=== PATIENT | male | born 1985 | race Caucasian/White ===

== ENCOUNTER 2017-08-11 18:31 | Inpatient (IN) | payer OTHER ==
[~2017-08-11] VITALS: Ht 172.7 cm; Wt 72.6 kg
[2017-08-11 17:20] VITALS: BP 136/84
[2017-08-11] MEDS ORDERED: ONDANSETRON 4 MG/2 ML VIAL IM PRN (19:30)
[2017-08-11] MEDS ORDERED: DICYCLOMINE HCL 20 MG TABLET PO PRN (19:30)
[2017-08-11] MEDS ORDERED: LORAZEPAM 1 MG TABLET PO PRN (19:30)
[2017-08-11] MEDS ORDERED: ONDANSETRON ODT 4 MG TAB.RAPDIS SL PRN (19:30)
[2017-08-11] MEDS ORDERED: MIRALAX 17 GM POWD.PACK PO PRN (19:30)
[2017-08-11] MEDS ORDERED: MAGNESIUM HYDROXIDE 30 ML LIQUID UDC PO PRN (19:30)
[2017-08-11] MEDS ORDERED: LORAZEPAM 2 MG/1 ML VIAL IM PRN (19:30)
[2017-08-11] MEDS ORDERED: LOPERAMIDE HCL 2 MG CAPSULE PO PRN ×2 (19:30)
[2017-08-11] MEDS ORDERED: CLONIDINE HCL 0.1 MG TABLET PO PRN (19:30)
[2017-08-11] MEDS ORDERED: BUPRENORPHINE HCL 2 MG TAB.SUBL SL PRN (19:30)
[2017-08-11] MEDS ORDERED: MAG HYDROX/AL HYDROX/SIMETH 30 ML LIQUID UDC PO PRN (19:30)
[2017-08-11 20:03] LABS: *AMPHETAMINE, URINE NEGATIVE (NEGATIVE); *BARBITURATE, URINE NEGATIVE (NEGATIVE); *CANNABINOID, URINE NEGATIVE (NEGATIVE); *COCCAINE, URINE POSITIVE (NEGATIVE); *OPIATE, URINE POSITIVE (NEGATIVE); *PHENCYCLIDINE SCREEN,URINE NEGATIVE (NEGATIVE)
[2017-08-11] MEDS: ACETAMINOPHEN 325 MG TABLET PO PRN (20:09)
[2017-08-11] MEDS: GABAPENTIN 300 MG CAPSULE PO SCH (20:11)
[2017-08-11] MEDS ORDERED: LORAZEPAM 1 MG TABLET PO SCH (21:00)
[2017-08-11] MEDS ORDERED: BUPRENORPHINE HCL 2 MG TAB.SUBL SL SCH (21:00)
[2017-08-11] MEDS: IBUPROFEN 600 MG TABLET PO PRN (21:32)
[2017-08-11 22:04] LABS: BASOPHILS # (AUTO) 0.1 K/uL (0.0-8.0); BASOPHILS % (AUTO) 0.7 % (0.0-2.0); EOSINOPHILS % (AUTO) 0.3 % (0.0-7.0); HEMATOCRIT 35.3 % (36.7-47.1); LYMPHOCYTES # (AUTO) 2.1 K/uL (20.0-40.0); LYMPHOCYTES % (AUTO) 22.6 % (20.5-51.5); MEAN CORPUSCULAR HEMOGLOBIN 26.5 uug (23.8-33.4); MEAN CORPUSCULAR HGB CONC 34 g/dL (32.5-36.3); MEAN CORPUSCULAR VOLUME 78.1 fL (73.0-96.2); MONOCYTES # (AUTO) 0.9 K/uL (2.0-10.0); MONOCYTES % (AUTO) 9.1 % (0.0-11.0); NEUTROPHILS # (AUTO) 6.4 K/uL (1.8-8.9); NEUTROPHILS % (AUTO) 67.3 % (38.5-71.5); PLATELET COUNT (AUTO) 186 K/uL (152-348); RED BLOOD CELL COUNT(AUTO) 4.52 MIL/uL (4.06-5.63); WHITE BLOOD COUNT (AUTO) 9.5 K/uL (3.6-10.2)
[2017-08-11 22:10] LABS: ETHANOL < 3 MG/DL (0-0)
[2017-08-11 22:16] LABS: ALANINE AMINOTRANSFERASE 114 U/L (16-63); ALKALINE PHOSPHATASE 61 U/L (50-136); ASPARTATE AMINOTRANSFERASE 88 U/L (15-37); BILIRUBIN,TOTAL 0.4 mg/dL (0.2-1.0); CARBON DIOXIDE 27 mmol/L (21-32); CHLORIDE 100 mmol/L (98-107); CREATININE 1.1 mg/dL (0.6-1.3); GLUCOSE 123 mg/dL (74-106); MAGNESIUM 1.7 mg/dL (1.8-2.4); POTASSIUM 3.1 mmol/L (3.5-5.1); TOTAL PROTEIN, SERUM 7.4 g/dL (6.4-8.2); UREA NITROGEN, BLOOD 20 mg/dL (7-18)
[2017-08-11] MEDS ORDERED: diphenhydrAMINE 50 MG CAPSULE PO PRN (22:45)
[2017-08-11] MEDS ORDERED: POTASSIUM CHLORIDE 20 MEQ TAB.PRT.SR PO ONE (23:15)
[2017-08-11] MEDS ORDERED: MAGNESIUM OXIDE 400 MG TABLET PO ONE (23:15)
[2017-08-11] MEDS ORDERED: BUPRENORPHINE HCL 2 MG TAB.SUBL SL ONE (23:45)
[2017-08-11] MEDS ORDERED: LORAZEPAM 1 MG TABLET PO ONE (23:45)
[2017-08-11] MEDS ORDERED: KETOROLAC TROMETHAMINE 30 MG INJ IM ONE (23:45)
[2017-08-12] VITALS: BP 132/80
[2017-08-12 04:00] VITALS: BP 128/84
[2017-08-12] MEDS ORDERED: FOLI1TAB16 PO (04:52)
[2017-08-12] MEDS ORDERED: GABA300C PO (04:52)
[2017-08-12] MEDS ORDERED: NAPR500T6 PO (04:52)
[2017-08-12] MEDS ORDERED: HYDR-3028 PO (04:52)
[2017-08-12] MEDS ORDERED: OMEG1CAP40 PO (04:52)
[2017-08-12] MEDS ORDERED: VITA1TAB20 PO (04:52)
[2017-08-12] MEDS ORDERED: THIA100T8 PO (04:52)
[2017-08-12] MEDS ORDERED: ACET-2154 PO (04:52)
[2017-08-12] MEDS ORDERED: MULT1TAB69 PO ×2 (04:52)
[2017-08-12] MEDS ORDERED: MELATONIN (04:52)
[2017-08-12] MEDS ORDERED: PEPTO-BISMOL (04:52)
[2017-08-12] MEDS ORDERED: QUET300T2 PO (04:52)
[2017-08-12] MEDS ORDERED: TUMS (04:52)
[2017-08-12] MEDS ORDERED: IBUP-1957 PO (04:52)
[2017-08-12] MEDS ORDERED: GABA-532 PO (04:52)
[2017-08-12] MEDS ORDERED: CHLO1TAB PO (04:52)
[2017-08-12] MEDS ORDERED: GUAI100S34 PO (04:52)
[2017-08-12] MEDS: LORAZEPAM 1 MG TABLET PO PRN ×2 (05:14→16:00)
[2017-08-12] MEDS: IBUPROFEN 600 MG TABLET PO PRN (05:23)
[2017-08-12 08:56] VITALS: BP 132/63
[2017-08-12] MEDS ORDERED: INFLUENZA VACCINE 2017-2018 0.5 ML DISP.SYRIN IM ONE (09:00)
[2017-08-12] MEDS ORDERED: PNEUMOCOCCAL 23-VAL P-SAC VAC 0.5 ML VIAL IM ONE (09:00)
[2017-08-12] MEDS ORDERED: TUBERCULIN,PURIF.PROT.DERIV. 5 TU/0.1 ML TEST ID ONE (09:00)
[2017-08-12] MEDS: LORAZEPAM 1 MG TABLET PO SCH ×4 (09:08→21:45)
[2017-08-12] MEDS: BUPRENORPHINE HCL 2 MG TAB.SUBL SL SCH ×3 (09:08→21:47)
[2017-08-12] MEDS: GABAPENTIN 300 MG CAPSULE PO SCH ×4 (09:08→21:45)
[2017-08-12] MEDS ORDERED: PRAZOSIN HCL 1 MG CAPSULE PO PRN (11:30)
[2017-08-12] MEDS ORDERED: KETOROLAC TROMETHAMINE 30 MG INJ IM PRN (13:00)
[2017-08-12 16:00] VITALS: BP 147/79
[2017-08-12 20:00] VITALS: BP 142/83
[2017-08-12] MEDS ORDERED: QUETIAPINE FUMARATE 200 MG TABLET PO SCH (21:00)
[2017-08-12] MEDS: ACETAMINOPHEN 325 MG TABLET PO PRN (21:44)
[2017-08-12] MEDS ORDERED: LEVOFLOXACIN 750 MG TABLET PO SCH (22:15)
[2017-08-12 22:34] LABS: BASOPHILS # (AUTO) 0.1 K/uL (0.0-8.0); BASOPHILS % (AUTO) 0.5 % (0.0-2.0); EOSINOPHILS % (AUTO) 0.1 % (0.0-7.0); HEMATOCRIT 38.5 % (36.7-47.1); HEMOGLOBIN 12.8 g/dL (12.5-16.3); LYMPHOCYTES # (AUTO) 2.6 K/uL (20.0-40.0); LYMPHOCYTES % (AUTO) 18.3 % (20.5-51.5); MEAN CORPUSCULAR HEMOGLOBIN 26.1 uug (23.8-33.4); MEAN CORPUSCULAR HGB CONC 33 g/dL (32.5-36.3); MEAN CORPUSCULAR VOLUME 78.4 fL (73.0-96.2); MONOCYTES # (AUTO) 1.3 K/uL (2.0-10.0); MONOCYTES % (AUTO) 9.2 % (0.0-11.0); NEUTROPHILS # (AUTO) 10.2 K/uL (1.8-8.9); NEUTROPHILS % (AUTO) 71.9 % (38.5-71.5); PLATELET COUNT (AUTO) 185 K/uL (152-348); RED BLOOD CELL COUNT(AUTO) 4.91 MIL/uL (4.06-5.63); WHITE BLOOD COUNT (AUTO) 14.2 K/uL (3.6-10.2)
[2017-08-12 22:40] LABS: BILIRUBIN,DIRECT 0.1 mg/dL (0.0-0.2); BILIRUBIN,TOTAL 0.4 mg/dL (0.2-1.0); CREATININE 1.1 mg/dL (0.6-1.3); MAGNESIUM 1.6 mg/dL (1.8-2.4); POTASSIUM 4.2 mmol/L (3.5-5.1); TOTAL PROTEIN, SERUM 8.1 g/dL (6.4-8.2)
[2017-08-12] MEDS ORDERED: MAGNESIUM OXIDE 400 MG TABLET PO ONE (23:00)
[2017-08-12] MEDS ORDERED: VANCOMYCIN IV 1 G in PREMIXED 0 EACH IV SCH (23:00)
[2017-08-12] MEDS: OSELTAMIVIR PHOSPHATE 75 MG CAPSULE PO SCH (23:34)
[2017-08-12] MEDS: IV NS 1000 ML 1,000 ML IV PRN (23:40)
[2017-08-12] MEDS ORDERED: PIPERACILLIN/TAZOBACTAM/D5W 50 ML IV ONE (23:45)
[2017-08-12] MEDS ORDERED: VANCOMYCIN IV 200 ML ONE (23:48)
[2017-08-13] MEDS: PIPERACILLIN/TAZOBACTAM/D5W 3.375 G in PREMIXED 1 EACH IV SCH ×3 (00:07→13:24)
[2017-08-13 04:00] VITALS: BP 121/70
[2017-08-13] MEDS ORDERED: PIPERACILLIN/TAZOBACTAM/D5W 50 ML IV ONE (05:42)
[2017-08-13 06:46] LABS: BASOPHILS # (AUTO) 0.1 K/uL (0.0-8.0); BASOPHILS % (AUTO) 0.7 % (0.0-2.0); EOSINOPHILS % (AUTO) 0.2 % (0.0-7.0); HEMATOCRIT 34.6 % (36.7-47.1); HEMOGLOBIN 11.5 g/dL (12.5-16.3); LYMPHOCYTES # (AUTO) 2.9 K/uL (20.0-40.0); LYMPHOCYTES % (AUTO) 24.4 % (20.5-51.5); MEAN CORPUSCULAR HEMOGLOBIN 26.2 uug (23.8-33.4); MEAN CORPUSCULAR HGB CONC 33 g/dL (32.5-36.3); MEAN CORPUSCULAR VOLUME 78.7 fL (73.0-96.2); MONOCYTES # (AUTO) 1.4 K/uL (2.0-10.0); MONOCYTES % (AUTO) 11.8 % (0.0-11.0); NEUTROPHILS # (AUTO) 7.5 K/uL (1.8-8.9); NEUTROPHILS % (AUTO) 62.9 % (38.5-71.5); PLATELET COUNT (AUTO) 167 K/uL (152-348); RED BLOOD CELL COUNT(AUTO) 4.39 MIL/uL (4.06-5.63)
[2017-08-13] MEDS: ACETAMINOPHEN 325 MG TABLET PO PRN (06:51)
[2017-08-13 07:20] LABS: BILIRUBIN,DIRECT 0.1 mg/dL (0.0-0.2); BILIRUBIN,TOTAL 0.4 mg/dL (0.2-1.0); CREATININE 1.3 mg/dL (0.6-1.3); MAGNESIUM 1.5 mg/dL (1.8-2.4); PHOSPHOROUS 3.2 mg/dL (2.5-4.9); POTASSIUM 3.6 mmol/L (3.5-5.1)
[2017-08-13 08:13] VITALS: BP 114/63
[2017-08-13] MEDS ORDERED: VANCOMYCIN IV 1,250 MG in IV DEXTROSE 5% 500 ML IV SCH (09:00)
[2017-08-13] MEDS ORDERED: LORAZEPAM 1 MG TABLET PO SCH ×2 (09:00)
[2017-08-13] MEDS ORDERED: HYDROXYZINE PAMOATE 25 MG CAPSULE PO PRN (09:00)
[2017-08-13] MEDS ORDERED: BUPRENORPHINE HCL 2 MG TAB.SUBL SL SCH ×3 (09:00→15:00)
[2017-08-13 09:08] LABS: HEPATITIS B SURFACE AG Negative (Negative)
[2017-08-13] MEDS ORDERED: MAGNESIUM OXIDE 400 MG TABLET PO ONE (09:45)
[2017-08-13] MEDS: IV NS 1000 ML 1,000 ML IV PRN ×2 (09:47→14:07)
[2017-08-13 10:00] VITALS: BP 120/64
[2017-08-13] MEDS: GABAPENTIN 300 MG CAPSULE PO SCH ×2 (10:00→14:55)
[2017-08-13] MEDS: OSELTAMIVIR PHOSPHATE 75 MG CAPSULE PO SCH (10:00)
[2017-08-13 12:17] VITALS: BP 113/61
[2017-08-13] MEDS ORDERED: VANCOMYCIN IV 1 G in PREMIXED 0 EACH IV SCH (21:00)
[2017-08-13] MEDS ORDERED: LACTOBACILLUS RHAMNOSUS GG 1 EACH CAPSULE PO SCH (21:00)
[2017-08-14] MEDS ORDERED: LORAZEPAM 1 MG TABLET PO SCH ×2 (09:00)
[2017-08-14] MEDS ORDERED: BUPRENORPHINE HCL 2 MG TAB.SUBL SL SCH ×2 (09:00)
[2017-08-15] MEDS ORDERED: BUPRENORPHINE HCL 2 MG TAB.SUBL SL SCH ×2 (09:00)
[2017-08-15] MEDS ORDERED: LORAZEPAM 1 MG TABLET PO SCH ×2 (09:00)
== END 2017-08-13 16:28 | disposition left against medical advice (07) | DRG 894 ==
LOC: SRC 19:00
PROVIDERS: ADMIT Internal Medicine; ATTEND Internal Medicine
PROC: HZ2ZZZZ Detoxification Services for Substance Abuse Treatment (ICD-10-PCS; principal; 2017-08-11)
DX: F13.230 Sedative, hypnotic or anxiolytic dependence with withdrawal, uncomplicated (principal); E83.42 Hypomagnesemia; F14.20 Cocaine dependence, uncomplicated; F11.23 Opioid dependence with withdrawal; F17.210 Nicotine dependence, cigarettes, uncomplicated; Z82.49 Family history of ischemic heart disease and other diseases of the circulatory system; F43.10 Post-traumatic stress disorder, unspecified; R74.0 Nonspecific elevation of levels of transaminase and lactic acid dehydrogenase [LDH]; E87.6 Hypokalemia; F32.9 Major depressive disorder, single episode, unspecified; E86.0 Dehydration; D64.9 Anemia, unspecified; G47.00 Insomnia, unspecified; Z59.1 Inadequate housing; Z91.89 Other specified personal risk factors, not elsewhere classified; D72.829 Elevated white blood cell count, unspecified; R50.9 Fever, unspecified
CPT/HCPCS: 36415; 71045; 80307; 80346; 80353; 80361; 83605; 83735; 84100; 85025; 86403; 86580; 86592; 86705; 86803; 87040; 87070; 87340; 87400; 87806; 90686; 90732; A4663; G0480; J1885; J2543; J3370; J7030; J7060; Q0163

== ENCOUNTER 2017-08-14 00:07 | Emergency (ER) | payer OTHER ==
[~2017-08-14] VITALS: Ht 170.2 cm; Wt 72.6 kg
--- NOTE | 2017-08-14 00:42 | NUR ---
DR ODALYS ELENA MD AT BEDSIDE FOR MSE.
[2017-08-14 01:20] LABS: *BILIRUBIN,URIN NEGATIVE (NEGATIVE); *BLOOD, URINE Trace-intact (NEGATIVE); *CLARITY,URINE CLEAR (CLEAR); *COLOR,URINE YELLOW (YELLOW); *KETONES,URINE NEGATIVE (NEGATIVE); *PROTEIN,URINE NEGATIVE (NEGATIVE); LEUKOCYTE ESTERASE ,URINE NEGATIVE (NEGATIVE); NITRITE, URINE NEGATIVE (NEGATIVE); UGLUCOSE NEGATIVE (NEGATIVE)
[2017-08-14 01:46] LABS: BACTERIA,URINE NONE SEEN /HPF (NONE SEEN); SQUAMOUS EPITHELIAL CELL,UR FEW /HPF (NONE SEEN); URINE AMORPHOUS PHOSPHATES FEW /HPF; WBC,URINE 0-3 /HPF (0-3)
[2017-08-14 01:49] LABS: BASOPHILS % (AUTO) 0.5 % (0.0-2.0); EOSINOPHILS # (AUTO) 0.1 K/uL (0.0-0.7); EOSINOPHILS % (AUTO) 0.8 % (0.0-7.0); HEMATOCRIT 35.4 % (36.7-47.1); HEMOGLOBIN 11.8 g/dL (12.5-16.3); LYMPHOCYTES # (AUTO) 1.9 K/uL (20.0-40.0); LYMPHOCYTES % (AUTO) 20.5 % (20.5-51.5); MEAN CORPUSCULAR HGB CONC 33 g/dL (32.5-36.3); MEAN CORPUSCULAR VOLUME 78.4 fL (73.0-96.2); MONOCYTES # (AUTO) 0.9 K/uL (2.0-10.0); MONOCYTES % (AUTO) 9.5 % (0.0-11.0); NEUTROPHILS # (AUTO) 6.4 K/uL (1.8-8.9); NEUTROPHILS % (AUTO) 68.7 % (38.5-71.5); PLATELET COUNT (AUTO) 182 K/uL (152-348); RED BLOOD CELL COUNT(AUTO) 4.51 MIL/uL (4.06-5.63); WHITE BLOOD COUNT (AUTO) 9.3 K/uL (3.6-10.2)
[2017-08-14 01:51] LABS: *CANNABINOID, URINE NEGATIVE (NEGATIVE); *COCCAINE, URINE POSITIVE (NEGATIVE); *PHENCYCLIDINE SCREEN,URINE NEGATIVE (NEGATIVE)
[2017-08-14 01:52] LABS: *AMPHETAMINE, URINE NEGATIVE (NEGATIVE); *BARBITURATE, URINE NEGATIVE (NEGATIVE); *OPIATE, URINE POSITIVE (NEGATIVE)
[2017-08-14 02:06] LABS: CARBON DIOXIDE 33 mmol/L (21-32); CHLORIDE 97 mmol/L (98-107); CREATININE 1.1 mg/dL (0.6-1.3); GLUCOSE 102 mg/dL (74-106); POTASSIUM 3.6 mmol/L (3.5-5.1); UREA NITROGEN, BLOOD 20 mg/dL (7-18)
[2017-08-14 02:12] LABS: ACETAMINOPHEN < 2.0 ug/mL (10-30); ALANINE AMINOTRANSFERASE 71 U/L (16-63); ALKALINE PHOSPHATASE 61 U/L (50-136); ASPARTATE AMINOTRANSFERASE 32 U/L (15-37); BILIRUBIN,DIRECT 0.1 mg/dL (0.0-0.2); BILIRUBIN,TOTAL 0.5 mg/dL (0.2-1.0); TOTAL PROTEIN, SERUM 7.5 g/dL (6.4-8.2)
--- NOTE | 2017-08-14 02:26 | NUR ---
DON SALGADO CALLED FOR CRISIS EVAL. STATED HE WILL BE HERE IN A FEW HOURS.
[2017-08-14 03:17] LABS: ETHANOL < 3 MG/DL (0-0)
--- NOTE | 2017-08-14 03:49 | NUR ---
PT RESTING W/ EYES CLOSED. NO ACUTE DISTRESS NOTED.
--- NOTE | 2017-08-14 04:37 | NUR ---
DON SALGADO CALLED- ETA [id number]
--- NOTE | 2017-08-14 05:47 | NUR ---
PT AMBULATED TO AND FROM BATHROOM W/ STEADY GAIT. NO ACUTE DISTRESS NOTED.
--- NOTE | 2017-08-14 06:29 | NUR ---
PT SLEEPING W/ EYES CLOSED. NO DISTRESS NOTED. PENDING EVAL FROM DON SALGADO.
--- NOTE | 2017-08-14 06:40 | NUR ---
DON SALGADO AT BEDSIDE FOR EVAL.
--- NOTE | 2017-08-14 07:10 | NUR ---
Patient discharged to home in stable conditon. Written and verbal after care instructions given. Patient verbalizes understanding of instructions. Pt ambulated from ER w/ steady gait. Denies SI.
[2017-08-14 07:12] VITALS: BP 124/74
== END 2017-08-14 07:12 | disposition home or self-care (01) ==
LOC: ER 00:13
DX: F15.10 Other stimulant abuse, uncomplicated (principal); F17.210 Nicotine dependence, cigarettes, uncomplicated; F12.10 Cannabis abuse, uncomplicated; F11.10 Opioid abuse, uncomplicated; Z91.013 Allergy to seafood; Z79.899 Other long term (current) drug therapy; Z79.1 Long term (current) use of non-steroidal anti-inflammatories (NSAID)
CPT/HCPCS: 36415; 80307; 85025; A4663; G0480; G0480-TC